=== PATIENT | male | born 2000 | race Caucasian/White ===

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

== ENCOUNTER 2023-07-05 20:27 | Emergency (ER) | payer OTHER ==
[~2023-07-05] VITALS: Ht 188 cm; Wt 65.8 kg
[~2023-07-05 20:27] MED LIST: MELO7.5 PO
[2023-07-05 20:37] VITALS: BP 139/99
== END 2023-07-05 22:03 | disposition home or self-care (01) ==
LOC: ER 20:27
DX: S81.012A Laceration without foreign body, left knee, initial encounter (principal); W27.0XXA Contact with workbench tool, initial encounter; Z23 Encounter for immunization
CPT/HCPCS: 12001; 90471; 90715; 99283-25